=== PATIENT | female | born 1995 | race Caucasian/White ===

== ENCOUNTER 2025-07-06 22:38 | Emergency (ER) | payer OTHER ==
[~2025-07-06] VITALS: Ht 160 cm; Wt 66.0 kg
[2025-07-06 22:46] VITALS: O2SAT 100
[2025-07-06 23:13] VITALS: TEMP 36.5
[2025-07-07] MEDS: FAMOTIDINE 20MG/2ML VIAL IV ONE (00:11)
[2025-07-07] MEDS: METHYLPREDNISOLONE SOD SUCC 125MG/2ML (ACT-O-VIAL) IV ONE (00:11)
[2025-07-07] MEDS ORDERED: FAMO-135 MT (01:16)
[2025-07-07] MEDS ORDERED: DIPH25CA83 MT (01:16)
[2025-07-07 01:54] VITALS: BP 118/49; PULSE 68; RESP 25; O2SAT 99
== END 2025-07-07 01:56 | disposition home or self-care (01) ==
LOC: ER 22:38
DX: T78.3XXA Angioneurotic edema, initial encounter (principal); Z88.0 Allergy status to penicillin; X58.XXXA Exposure to other specified factors, initial encounter
CPT/HCPCS: 99284; 96374; 96375; J1308; J2919; Z7610 ×2